=== PATIENT | male | born 1975 | race Caucasian/White ===

== ENCOUNTER 2017-11-07 07:29 | Inpatient (IN) | payer SELFPAY ==
[2017-11-07] MEDS ORDERED: Nitroglycerin 2% Ointment 1 INCH/1 GM Packet ONE (07:42)
[2017-11-07] MEDS ORDERED: Ondansetron HCl/PF 4 MG/2 ML Vial ONE (07:42)
[2017-11-07 09:35] VITALS: BMI 21.4
[2017-11-07 10:05] LABS: Troponin I Less than 0.010 ng/mL (< 0.028)
[2017-11-07] MEDS ORDERED: Communication Order-Pharmacy FS SCH (11:30)
[2017-11-07] MEDS ORDERED: Nitroglycerin 0.4 MG TAB (25 Tab Bottle) PO PRN (12:22)
[2017-11-07] MEDS ORDERED: Ondansetron HCl/PF 4 MG/2 ML Vial IVP PRN (12:22)
[2017-11-07] MEDS ORDERED: Ondansetron ODT 4 MG TAB PO PRN (12:22)
[2017-11-07] MEDS ORDERED: Acetaminophen 325 MG TAB PO PRN (12:22)
[2017-11-07] MEDS ORDERED: Senokot 8.6 MG TAB PO PRN (12:22)
[2017-11-07] MEDS ORDERED: Mag-Al 1200 mg/1200 mg/30 ML UDCUP PO PRN (12:22)
[2017-11-07] MEDS ORDERED: Calcium Carbonate 500 MG ChewTAB PO PRN (12:22)
[2017-11-07] MEDS ORDERED: Enoxaparin Sodium 60 MG/0.6 ML SYRINGE SC SCH (12:45)
[2017-11-07] MEDS ORDERED: Clopidogrel Bisulfate 75 MG TAB PO SCH (12:45)
--- NOTE | 2017-11-07 12:51 | HP ---
DATE OF ADMISSION: 11/07/2017 PRIMARY CARE PHYSICIAN: Serge Heredia. PRIMARY CONCRETE BUSTER OPERATOR: Dr. Sparks. CHIEF COMPLAINT: Chest discomfort. HISTORY OF PRESENT ILLNESS: Patient is a 42-year-old male with coronary artery disease, status post stent placement, who presented to the emergency room with above complaints. In 2013, patient underwe nt cardiac catheterization that showed 2-vessel coronary artery disease. There was a previously plac ed stent in the LAD, which was widely patent. He had 50%-75% stenosis in the right coronary artery w hich was unchanged from previous cardiac catheterization. The patient woke up around 5:30 a.m. with sudden onset of chest pressure radiating to his left arm. He was nauseous, lightheaded and diaphoretic. He also had some palpitations. No aggravating or reli eving factor reported. He continues to have some chest discomfort. His EKG in the emergency room sh owed sinus rhythm without significant ST-T wave changes. He received morphine, Zofran, and 1 inch ni tropatch was placed. His troponins were negative. PAST MEDICAL HISTORY: 1. Coronary artery disease with stent placement. 2. Dyslipidemia. 3. Hypertension. 4. Noncompliance. The patient has not taken Plavix for a month. 5. History of lung cancer with metastasis to the liver that was treated with radiation. PAST SURGICAL HISTORY: 1. Coronary stent placement. 2. Finger surgery. ALLERGIES: Patient is allergic to KEFLEX. CURRENT HOME MEDICATIONS: Aspirin 325 mg daily. He also takes antihypertensives, he is unable to re call the name. FAMILY HISTORY: Positive for premature coronary artery disease. SOCIAL HISTORY: He continues to smoke up to half pack a day. Drinks alcohol socially, no drug use. REVIEW OF SYSTEMS: The following complete review of systems was negative, unless otherwise mentioned in the HPI or below: Constitutional: Weight loss or gain, ability to conduct usual activities. Skin: Rash, itching. Eyes: Double vision, pain. ENT/Mouth: Nose bleeding, neck stiffness, pain, tenderness. Cardiovascular: Palpitations, dyspnea on exertion, orthopnea. Respiratory: Shortness of breath, wheezing, cough, hemoptysis, fever or night sweats. Gastrointestinal: Poor appetite, abdominal pain, heartburn, nausea, vomiting, constipation, or diarr hea. Genitourinary: Urgency, frequency, dysuria, nocturia. Musculoskeletal: Pain, swelling. Neurologic/Psychiatric: Anxiety, depression. Allergy/Immunologic: Skin rash, bleeding tendency. PHYSICAL EXAMINATION: VITAL SIGNS: Temperature 98.4, respiration 18, pulse rate of 85, blood pressure of 145/94 with O2 sa turation 98% on room air. GENERAL: A 42-year-old male in no apparent distress. Still has mild to moderate chest discomfort. HEENT: Atraumatic, normocephalic. Sclerae are anicteric. Moist mucous membranes. No oral lesion. NECK: Supple, no JVD, no carotid bruit. LUNGS: Clear to auscultation bilaterally, no wheezing, rales or rhonchi. HEART: S1 and S2 present. Regular rate and rhythm. No murmurs, rubs, or gallops. ABDOMEN: Soft, nontender, bowel sounds present. EXTREMITIES: No edema or calf tenderness. NEUROLOGIC: Grossly nonfocal, moves all four extremities. PSYCHIATRIC: Alert, awake, oriented x3. SKIN: Warm and dry. LYMPH NODES: No palpable lymph nodes in the neck. PERIPHERAL VASCULAR: Radial pulses palpable bilaterally. MUSCULOSKELETAL: No joint swelling or tenderness. LABORATORY DATA AND IMAGING DATA: CBC showed WBC 8.1 with hemoglobin 15.8, hematocrit 45.8, platelet 219. Chemistries showed sodium 141, potassium 4.2, chloride 105, bicarbonate 23, BUN 13, creatinine 0.75, glucose 110. Troponins were negative. Chest x-ray by my review was negative for infiltrate. EKG by my review as discussed above. IMPRESSION AND PLAN: 1. Chest discomfort in a 42-year-old male with history of coronary artery disease with stent placeme nt. The patient continues to smoke. He has not taken Plavix for a month. His symptoms are highly s uspicious for acute coronary syndrome. Patient will be monitored in the telemetry unit. Cardiology will be consulted. We will continue aspirin. We will resume Plavix. We will also give him 1 dose o f Lovenox. 2. Tobacco dependence. Patient was extensively counseled to quit smoking. 3. Hypertension. We will monitor. We will continue nitropatch for now. If needed, we will add SHELDON inhibitor. 4. Dyslipidemia. We will start him on statins. 5. History of lung cancer with metastasis to the liver, treated with radiation. The patient was adv ised to quit smoking. Plan of care was discussed with the patient in detail. He stated understanding.
[2017-11-07] MEDS: Nitroglycerin 2% Ointment 1 INCH/1 GM Packet TOP SCH ×2 (13:17→20:41)
[2017-11-07] MEDS: HYDROcodone/Acetaminophen 5/325 mg Tablet PO PRN ×2 (13:19→19:09)
[2017-11-07 14:06] LABS: Troponin I Less than 0.010 ng/mL (< 0.028)
[2017-11-07] MEDS: Famotidine 20 MG TAB PO SCH (20:40)
[2017-11-07] MEDS: Atorvastatin Calcium 40 MG TAB PO SCH (20:40)
[2017-11-07] MEDS: Docusate 100 MG CAP PO SCH (20:41)
[2017-11-07] MEDS: Sodium Chloride 0.9% 1,000 ML IV SCH (23:43)
[2017-11-08] MEDS: Aspirin 325 MG TAB PO SCH (05:00)
[2017-11-08] MEDS: Famotidine 20 MG TAB PO SCH ×2 (05:00→20:43)
[2017-11-08] MEDS: Clopidogrel Bisulfate 75 MG TAB PO SCH (05:00)
[2017-11-08] MEDS: Nitroglycerin 2% Ointment 1 INCH/1 GM Packet TOP SCH ×3 (05:00→20:43)
[2017-11-08] MEDS ORDERED: Lidocaine 1% (PF) 30 ML VIAL ONE (07:42)
[2017-11-08] MEDS ORDERED: Iopamidol 370 76% 100 ML VIAL ONE (09:06)
--- NOTE | 2017-11-08 09:30 | CON ---
DATE OF CONSULTATION: 11/07/2017 ADMITTING DIAGNOSES: Chest pain, history of coronary artery disease, continued tobacco abuse, hypert ension, and dyslipidemia. HISTORY OF PRESENT ILLNESS: This very unfortunate 42-year-old gentleman was originally seen by me ab out 5 years ago, at which time he had had a myocardial infarction. He underwent an emergent angiopla sty and stent placement to the left anterior descending artery. At that time, he was found to have s ome right coronary artery stenosis, has been followed on a routine basis. He had had a repeat cardia c catheterization in 2013. His last was in 2013 where he underwent a Doppler flow wire, which did no t show significant physiological stenosis in the right coronary artery. He had undergone a repeat an gioplasty, also previously about a month after he was originally seen in 03/2013 for his original jaison cardial infarction. He then underwent a repeat cardiac catheterization in 04/2013 for in-stent reste nosis after he had stopped taking his medications. We have been following him by cardiac catheteriza tion. He does not report to the office. He has never been seen in the office. He is only seen in [facility] when he develops chest pain. He again woke up this morning around 6:00 having chest pain and he also had some left hand swelling he said. He said the pain was pressure-like, like when he h as suffered his myocardial infarction in the past; however, EKG is unremarkable. It shows a normal s inus rhythm and cardiac enzymes also negative for any evidence of myocardial infarction. At this george e, he still has some mild discomfort, but EKG remained stable. PAST MEDICAL HISTORY: Significant for coronary artery disease, angioplasty, stent placement, hyperte nsion, hypercholesterolemia. He has had angioplasty and stent placement to myocardial infarction. There is some indication in the notes that he may have some lung cancer with metastasis to the liver. I need to verify this. SOCIAL HISTORY: He does smoke. 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 He has 7 children who he helps take care of . MEDICATIONS: The patient was supposed to be taking Zocor, lisinopril, aspirin as well as Plavix. I do not believe he has been taking any of his medications. ALLERGIES: None. REVIEW OF SYSTEMS: A 12 point review of systems is unremarkable except what was noted in the history of present illness. PHYSICAL EXAMINATION: GENERAL: Reveals a middle-aged gentleman who appears to be somewhat ill-kept. He is thin. He is in no acute distress at this time. VITAL SIGNS: Blood pressure of 130/84. He is afebrile. O2 saturation 98%, heart rate is 79. HEENT: Shows the head to be normocephalic and atraumatic. Carotid pulses are present. There were n o bruits. CHEST: Clear to auscultation without rales, rhonchi or wheezing. CARDIOVASCULAR: Exam reveals a regular rate and rhythm, normal S1, S2. I cannot hear an S3 nor an S 4. ABDOMEN: Unremarkable. EXTREMITIES: Show no clubbing, cyanosis or edema. NEUROLOGIC: The patient appears to be intact. SKIN: Warm and dry. There appears not be any swelling of the hands at this time. LABORATORY DATA: Shows negative cardiac enzymes and his glucose is 110, BUN was 13, creatinine 0.7, hemoglobin is 15.8. EKG shows a normal sinus rhythm with no acute changes. LDL was not measured. IMPRESSION: 1. Coronary artery disease with chest pain and I would advise the patient undergo repeat cardiac cat heterization despite having a relatively normal EKG and negative cardiac enzymes thus far. . 2. Hypertension. This is under good control at this time. 3. Hypercholesterolemia. Would advise with his history of coronary artery disease that the LDL be l ess than 70. We can repeat this level in the morning with a fasting lipid profile. Otherwise, we will plan for cardiac catheterization in this gentleman tomorrow. He does understand t he procedure and risks to include bleeding, infection, possibly a myocardial infarction, CVA, renal i nsufficiency, allergic contrast reaction, and the possibility of . We will plan for cardiac cat heterization tomorrow.
[2017-11-08] MEDS ORDERED: Heparin 10,000 UNITS/1 ML VIAL ONE (09:38)
[2017-11-08] MEDS ORDERED: Nitroglycerin 100MG/250ML BOT 250 ML ONE (09:38)
[2017-11-08] MEDS ORDERED: Verapamil 5 MG/2 ML VIAL ONE (09:38)
[2017-11-08] MEDS ORDERED: Clopidogrel Bisulfate 75 MG TAB ONE (10:20)
[2017-11-08] MEDS ORDERED: Midazolam HCl 2 mg/2 ml Vial ONE (10:32)
[2017-11-08] MEDS ORDERED: Fentanyl 100 MCG/2 ML VIAL ONE (10:42)
[2017-11-08] MEDS ORDERED: Carvedilol 3.125 MG TAB PO SCH ×3 (11:10→21:00)
[2017-11-08] MEDS: Sodium Chloride 0.9% 1,000 ML IV SCH (11:30)
[2017-11-08] MEDS: HYDROcodone/Acetaminophen 5/325 mg Tablet PO PRN ×2 (11:35→17:57)
[2017-11-08] MEDS: Docusate 100 MG CAP PO SCH ×2 (13:43→20:43)
--- NOTE | 2017-11-08 14:26 | PDOC.PN ---
- Subjective Encounter Start Date: 11/08/17 Encounter Start Time: 14:24 Subjective: s/p cardiac Cath and RCA stenting -: feels well. no new complaints -: no CP/SOB - Objective Resuscitation Status: Resuscitation Status FULL:Full Resuscitation MAR Reviewed: Yes Vital Signs & Weight: Vital Signs (12 hours) Temp Pulse Resp BP BP Pulse Ox 11/08/17 11:58 97.5 F L 73 20 134/83 98 11/08/17 11:05 77 14 163/92 H 98 11/08/17 10:42 98 11/08/17 07:38 97.7 F 75 24 H 139/93 H 100 11/08/17 05:00 98.3 F 68 16 129/85 98 Weight Weight 142 lb 14.4 oz I&O: 11/07/17 11/08/17 11/09/17 06:59 06:59 06:59 Intake Total 1440 566 Balance 1440 566 Additional Labs: Laboratory Tests 11/07/17 11/07/17 11/07/17 06:16 09:25 13:33 Troponin I Less than 0.010 Less than 0.010 Less than 0.010 Phys Exam - Physical Examination Constitutional: NAD HEENT: PERRLA, moist MMs, sclera anicteric, oral pharynx no lesions Neck: no nodes, no JVD, supple, full ROM Respiratory: no wheezing, no rales, no rhonchi, clear to auscultation bilateral Cardiovascular: RRR, no significant murmur, no rub Gastrointestinal: soft, non-tender, no distention, positive bowel sounds Musculoskeletal: no edema, pulses present Neurological: non-focal, normal sensation, moves all 4 limbs Psychiatric: normal affect, A&O x 3 Skin: no rash Dx/Plan (1) Chest pain Code(s): R07.9 - CHEST PAIN, UNSPECIFIED Status: Acute Qualifiers: Ischemic chest pain type: stable angina pectoris (2) CAD (coronary artery disease) Code(s): I25.10 - ATHSCL HEART DISEASE OF [place] CORONARY ARTERY W/O ANG PCTRS Status: Chronic (3) HLD (hyperlipidemia) Code(s): E78.5 - HYPERLIPIDEMIA, UNSPECIFIED Status: Chronic (4) HTN (hypertension) Code(s): I10 - ESSENTIAL (PRIMARY) HYPERTENSION Status: Chronic (5) Tobacco abuse Code(s): Z72.0 - TOBACCO USE Status: Chronic (6) Noncompliance Code(s): Z91.19 - PATIENT'S NONCOMPLIANCE W OTH MEDICAL TREATMENT AND REGIMEN Status: Chronic - Plan DVT proph w/SCDs Hemodynamically stab;le. monitor on Tele post Cath -: cont ASA,statin,palvix,BB and SHELDON-I -: dorothea dc home in am if stable & cleared by cardiology -: Tobacco cessation & med complinace discussed/emphasized in detail * . Review of Systems - Review of Systems Constitutional: negative: fever, chills, sweats, weakness, malaise, other ENT: negative: Ear Pain, Ear Discharge, Nose Pain, Nose Discharge, Nose Congestion, Mouth Pain, Mouth Swelling, Throat Pain, Throat Swelling, Other Respiratory: negative: Cough, Dry, Shortness of Breath, Hemoptysis, SOB with Excertion, Pleuritic Pain, Sputum, Wheezing Cardiovascular: negative: chest pain, palpitations, orthopnea, paroxysmal nocturnal dyspnea, edema, light headedness, other Gastrointestinal: negative: Nausea, Vomiting, Abdominal Pain, Diarrhea, Constipation, Melena, Hematochezia, Other Genitourinary: negative: Dysuria, Frequency, Incontinence, Hematuria, Retention , Other Musculoskeletal: negative: Neck Pain, Shoulder Pain, Arm Pain, Back Pain, Hand Pain, Leg Pain, Foot Pain, Other Neurological: negative: Weakness, Numbness, Incoordination, Change in Speech, Confusion, Seizures, Other - Medications/Allergies Allergies/Adverse Reactions: Allergies Allergy/AdvReac Type Severity Reaction Status Date / Time No Known Allergies Allergy Verified 11/07/17 09:49 Medications: Current Medications Acetaminophen (Tylenol) 650 mg PO Q4H PRN PRN Reason: Headache/Fever or Pain Hydrocodone Bitart/Acetaminophen (Sartell 5/325) 1 tab PO Q6H PRN PRN Reason: Pain Last Admin: 11/08/17 11:35 Dose: 1 tab Al Hydroxide/Mg Hydroxide (Maalox) 30 ml PO Q6H PRN PRN Reason: Heartburn or Indigestion Aspirin (Aspirin) 325 mg PO DAILY [facility] Last Admin: 11/08/17 05:00 Dose: 325 mg Atorvastatin Calcium (Lipitor) 40 mg PO HS DANICA Last Admin: 11/07/17 20:40 Dose: 40 mg Calcium Carbonate (Tums) 1,000 mg PO Q4H PRN PRN Reason: Heartburn or Indigestion Carvedilol (Coreg) 3.125 mg PO BID-[facility] Clopidogrel Bisulfate (Plavix) 75 mg PO DAILY [facility] Last Admin: 11/08/17 05:00 Dose: 75 mg Docusate Sodium (Colace) 100 mg PO BID [facility] Last Admin: 11/08/17 13:43 Dose: Not Given Famotidine (Pepcid) 20 mg PO BID [facility] Last Admin: 11/08/17 05:00 Dose: 20 mg Sodium Chloride (Normal Saline 0.9%) 1,000 mls @ 75 mls/hr IV .[id number] [facility] Last Admin: 11/08/17 11:30 Dose: 1,000 mls Lisinopril (Zestril) 2.5 mg PO DAILY [facility] Miscellaneous Information (Communication Order-Pharmacy) 0 each FS ONE [facility] Stop: 11/08/17 17:00 Nitroglycerin (Nitrostat) 0.4 mg PO Q5MIN PRN PRN Reason: Chest Pain Nitroglycerin (Nitro-Bid 2% Ointment) 0.5 inch TOP Q8H [facility] Last Admin: 11/08/17 14:08 Dose: 0.5 inch Ondansetron HCl (Zofran Odt) 4 mg PO Q6H PRN PRN Reason: Nausea/Vomiting Ondansetron HCl (Zofran) 4 mg IVP Q6H PRN PRN Reason: Nausea/Vomiting Senna (Senokot) 2 tab PO HSPRN PRN PRN Reason: Constipation Sodium Chloride (Flush - Normal Saline) 10 ml IVF Q12HR [facility] Last Admin: 11/08/17 11:21 Dose: Not Given Sodium Chloride (Flush - Normal Saline) 10 ml IVF PRN PRN PRN Reason: Saline Flush
[2017-11-08] MEDS: Carvedilol 3.125 MG TAB PO SCH (17:51)
[2017-11-08] MEDS: Atorvastatin Calcium 40 MG TAB PO SCH (20:42)
[2017-11-09] MEDS: HYDROcodone/Acetaminophen 5/325 mg Tablet PO PRN (00:52)
[2017-11-09] MEDS: Nitroglycerin 2% Ointment 1 INCH/1 GM Packet TOP SCH (04:43)
[2017-11-09 05:18] LABS: #Basophils 0.1 thou/uL (0.0-0.2); #Eosinphils 0.4 thou/uL (0.0-0.7); #Lymphocytes 2.7 thou/uL (1.20-3.40); #Monocytes 0.8 thou/uL (0.11-0.59); %Basophils 0.8 % (0.0-1.0); %Eosinophils 4.5 % (0.0-10.0); %Lymphocytes 34.2 % (21.0-51.0); %Monocytes 9.7 % (0.0-10.0); %Neutrophils 50.8 % (42.0-75.0); Hemoglobin 14.7 g/dL (14.0-18.0); Mean Corpuscular HGB CONC 33.9 g/dL (32.0-36.0); Mean Corpuscular Hemoglobin 31.9 pg (27.0-31.0); Mean Corpuscular Volume 94.1 fL (78.0-98.0); Mean Platelet Volume 7.9 fL (7.4-10.4); Platelet Count 195 thou/uL (130-400); RBC Distribution Width 11.1 % (11.5-14.5); Red Blood Cell (RBC) Count 4.61 mill/uL (4.70-6.10); White Blood Cell (WBC) Count 7.9 thou/uL (4.8-10.8)
[2017-11-09 05:32] LABS: ALT (SGPT) 8 U/L (8-55); AST (SGOT) 14 U/L (5-34); Albumin 3.9 g/dL (3.5-5.0); Alkaline Phosphatase 69 U/L (40-150); Anion Gap 10 mmol/L (10-20); BUN (Urea Nitrogen) 7 mg/dL (8.9-20.6); Bilirubin, Total 0.5 mg/dL (0.2-1.2); Calc. Creatinine Clearance 119 mL/min (70-130); Carbon Dioxide 26 mmol/L (22-29); Chloride 107 mmol/L (98-107); Estimated GFR-MDRD Greater than 90; Globulin 2.7 g/dL (2.4-3.5); Glucose 99 mg/dL (70-105); Potassium 4.3 mmol/L (3.5-5.1); Protein, Total 6.6 g/dL (6.0-8.3); Sodium 139 mmol/L (136-145)
[2017-11-09] MEDS: Clopidogrel Bisulfate 75 MG TAB PO SCH (08:30)
[2017-11-09] MEDS: Famotidine 20 MG TAB PO SCH (08:31)
[2017-11-09] MEDS: Carvedilol 3.125 MG TAB PO SCH (08:31)
[2017-11-09] MEDS: Docusate 100 MG CAP PO SCH (08:31)
[2017-11-09] MEDS: Aspirin 325 MG TAB PO SCH (08:31)
[2017-11-09 08:52] VITALS: BP 132/84; TEMP 98
[2017-11-09] MEDS ORDERED: Lisinopril 2.5 MG TAB PO SCH (09:00)
--- NOTE | 2017-11-09 14:27 | DIS ---
DATE OF ADMISSION: 11/07/2017 DATE OF DISCHARGE: 11/09/2017 CONDITION AT THE TIME OF DISCHARGE: Stable and improved. DISCHARGE DISPOSITION: Home. DISCHARGE MEDICATIONS: Lisinopril 2.5 mg daily, Plavix 75 mg daily, aspirin 325 mg daily, atorvastat in 40 mg daily, carvedilol 3.125 mg p.o. b.i.d., nicotine patch 14 mg daily. DISCHARGE DIAGNOSES: 1. Stable angina pectoris. 2. Chest pain secondary to stable angina pectoris. 3. Dyslipidemia. 4. Hypertension. 5. Noncompliance. 6. Tobacco abuse. INHOUSE CONSULTATIONS: Cardiology, Coral Sparks M.D. PROCEDURES DONE IN THE HOSPITAL: Cardiac catheterization, which showed 2-vessel coronary artery dise ase, prior stent in the LAD without stenosis. RCA with serial 90% lesion status post stenting with d rug-eluting stent. EF 55%-60%. HISTORY OF PRESENT ILLNESS: Mr. Duc Laughlin is a 42-year-old male with known history of coronary ar kirsten disease who continues to smoke, but prefers not to take his medication, came to the emergency ro with chest discomfort. He has stopped taking his Plavix about 1 month ago. Upon presentation, EK G showed sinus rhythm without any significant ST-T wave changes. Cardiac enzymes were negative. He was admitted for further workup. Blood pressure was 145/94 upon admission. Cardiology was consulted . Please see admission history and physical for further details. HOSPITAL COURSE: The patient was seen by Dr. Sparks, who recommended a cardiac catheterization. Seria l cardiac enzymes were trended and were negative. His cardiac catheterization shows severe RCA steno sis, which was stented. He was restarted on all the cardiac prudent medications and was stabilized a nd cleared by Cardiology for discharge this morning. All the medication prescriptions were provided to the patient. He was seen and examined prior to discharge. Extensive tobacco cessation counseling was provided. Rui borges was started on nicotine patches and was given prescription. PHYSICAL EXAMINATION: VITAL SIGNS: This morning, temperature 98.0, heart rate 67, respirations 20, saturating 100% on room air, blood pressure 132/84. GENERAL: He was not in the room initially and has gone down to smoke, but I saw him when he came [facility]. CHEST: Clear to auscultation bilaterally. CARDIOVASCULAR: Rate and rhythm are regular. He is given referral to [facility] and instructed to follow up with Dr. Sparks and armando smith his medications as prescribed. Total time spent, 32 minutes.
--- NOTE | 2017-11-11 12:23 | EKG ---
Test Reason : CP Blood Pressure : / mmHG Vent. Rate : 087 BPM Atrial Rate : 087 BPM P-R Int : 144 ms QRS Dur : 100 ms QT Int : 354 ms P-R-T Axes : 073 087 064 degrees QTc Int : 425 ms Normal sinus rhythm Normal ECG Confirmed by ADDIS VALENZUELA ([id number]), copy editor NANCI CHU ([id number]) on 11/11/2017 12:23:17 PM Referred By: Confirmed By:ADDIS VALENZUELA
--- NOTE | 2017-11-12 17:18 | EKG ---
Test Reason : POST STENTS Blood Pressure : / mmHG Vent. Rate : 059 BPM Atrial Rate : 059 BPM P-R Int : 132 ms QRS Dur : 106 ms QT Int : 404 ms P-R-T Axes : 050 089 061 degrees QTc Int : 399 ms Sinus bradycardia Otherwise normal ECG When compared with ECG of 26-NOV-2015 22:07, No significant change was found Confirmed by MARNIE PARRISH (2) on 11/12/2017 5:18:06 PM Referred By: YENNI Confirmed By:MARNIE PARRISH
--- NOTE | 2017-11-12 17:35 | EKG ---
Test Reason : Blood Pressure : / mmHG Vent. Rate : 058 BPM Atrial Rate : 058 BPM P-R Int : 148 ms QRS Dur : 100 ms QT Int : 404 ms P-R-T Axes : 073 090 071 degrees QTc Int : 396 ms Sinus bradycardia Rightward axis Borderline ECG When compared with ECG of 08-NOV-2017 11:44, (Unconfirmed) No significant change was found Confirmed by MARNIE PARRISH (2) on 11/12/2017 5:34:48 PM Referred By: YENNI Confirmed By:MARNIE PARRISH
== END 2017-11-09 11:09 | disposition home or self-care (01) | DRG 247 ==
LOC: ERS 07:29 → 2SW 09:16 → OBSVTOIN 11-08 11:10
PROVIDERS: ADMIT Internal Medicine; ATTEND Internal Medicine
PROC: 027034Z Dilation of Coronary Artery, One Artery with Drug-eluting Intraluminal Device, Percutaneous Approach (ICD-10-PCS; principal; 2017-11-08)
PROC: 4A023N7 Measurement of Cardiac Sampling and Pressure, Left Heart, Percutaneous Approach (ICD-10-PCS; 2017-11-08)
PROC: B2111ZZ Fluoroscopy of Multiple Coronary Arteries using Low Osmolar Contrast (ICD-10-PCS; 2017-11-08)
PROC: B2151ZZ Fluoroscopy of Left Heart using Low Osmolar Contrast (ICD-10-PCS; 2017-11-08)
DX: I25.119 Atherosclerotic heart disease of native coronary artery with unspecified angina pectoris (principal); E78.5 Hyperlipidemia, unspecified; I10 Essential (primary) hypertension; F17.210 Nicotine dependence, cigarettes, uncomplicated; Z91.19 Patient's noncompliance with other medical treatment and regimen; I25.2 Old myocardial infarction; Z85.118 Personal history of other malignant neoplasm of bronchus and lung; Z85.05 Personal history of malignant neoplasm of liver; Z95.5 Presence of coronary angioplasty implant and graft
CPT/HCPCS: 36415; 80053; 85025; 85347; 92928; 93005; 93010; 93458; 93798; 94760; 96374; 96375; 99152; 99153; A4216; C1769; C1874; C1887; C9600; J1644; J1650; J2001; J2250; J2270; J2405; J3010

== ENCOUNTER 2017-11-13 22:42 | Inpatient (IN) | payer SELFPAY ==
[2017-11-14 00:34] LABS: CKMB 1.4 ng/mL (0-6.6); Troponin I 0.047 ng/mL (< 0.028)
[2017-11-14 02:11] VITALS: BMI 21.2
[2017-11-14] MEDS ORDERED: Acetaminophen 325 MG TAB PO PRN ×2 (02:23→09:04)
[2017-11-14] MEDS ORDERED: Ondansetron ODT 4 MG TAB SL PRN (02:23)
[2017-11-14] MEDS ORDERED: Ondansetron HCl/PF 4 MG/2 ML Vial IVP PRN ×2 (02:23→09:04)
[2017-11-14 06:14] LABS: Troponin I 0.111 ng/mL (< 0.028)
[2017-11-14] MEDS ORDERED: Enoxaparin Sodium 80 MG/0.8 ML SYRINGE SC SCH (09:00)
[2017-11-14] MEDS ORDERED: Nitroglycerin 0.4 MG TAB (25 Tab Bottle) PO PRN (09:04)
[2017-11-14] MEDS ORDERED: Ondansetron ODT 4 MG TAB PO PRN (09:04)
[2017-11-14] MEDS ORDERED: Mag-Al 1200 mg/1200 mg/30 ML UDCUP PO PRN (09:04)
[2017-11-14] MEDS ORDERED: Senokot 8.6 MG TAB PO PRN (09:04)
[2017-11-14] MEDS ORDERED: Calcium Carbonate 500 MG ChewTAB PO PRN (09:04)
[2017-11-14] MEDS ORDERED: Sodium Chloride 0.9% 1,000 ML IV SCH (09:15)
[2017-11-14] MEDS ORDERED: Carvedilol 3.125 MG TAB PO SCH ×2 (09:15→17:00)
[2017-11-14] MEDS ORDERED: Lisinopril 2.5 MG TAB PO SCH (09:15)
--- NOTE | 2017-11-14 09:31 | HP ---
DATE OF ADMISSION: 11/14/2017 PRIMARY CARE PHYSICIAN: Serge Heredia. PRIMARY ORE MIXER: Dr. Sparks. CHIEF COMPLAINT: Chest discomfort. HISTORY OF PRESENT ILLNESS: Patient is a 42-year-old male with coronary artery disease, status post RCA stent last week, hypertension, and dyslipidemia, who presented to the emergency room with chest d iscomfort. He was discharged from this facility 5 days ago after RCA stent. He was also started on Lipitor 40 mg daily. Over the last 2-3 days, the patient has bilateral calf cramping. 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 His cramping and his bilateral calf also got worse. His pain was substernal, 5/10 with some shortness of breath. He denies any aggravating or relieving factor. No nausea, vomiting, fever , chills, or syncope reported. He denies any palpitations. For this reason[facility] In the emergency room, his vital signs showed temperature 98.4, respirations 15, pulse rate of 90, bl ood pressure of 124/73 with O2 saturation 95% on room air. His EKG showed some nonspecific ST-T-wave changes per ER report. He was started on Lovenox, aspirin, and a nitro patch was placed. He was tr ansferred to this facility for hospital admission. PAST MEDICAL HISTORY: 1. Coronary artery disease, status post stent placement as discussed above. 2. Hypertension. 3. Dyslipidemia. 4. History of medication noncompliance. The patient is compliant with all of his medications since his last discharge. 5. History of lung cancer with metastasis to the liver that was treated with radiation. PAST SURGICAL HISTORY: 1. Coronary stent placement as discussed above. 2. Finger surgery. ALLERGIES: Patient is allergic to KEFLEX. CURRENT HOME MEDICATIONS: 1. Aspirin 325 mg daily. 2. Plavix 75 mg daily. 3. Lipitor 40 mg at bedtime. 4. Carvedilol 3.125 mg b.i.d. 5. Lisinopril 2.5 mg daily. SOCIAL HISTORY: Patient quit smoking after the cardiac catheterization last week. He drinks alcohol socially, no drug use. FAMILY HISTORY: Positive for premature coronary artery disease. REVIEW OF SYSTEMS: The following complete review of systems was negative, unless otherwise mentioned in the HPI or below: Constitutional: Weight loss or gain, ability to conduct usual activities. Sk in: Rash, itching. Eyes: Double vision, pain. ENT/Mouth: Nose bleeding, neck stiffness, pain, te nderness. Cardiovascular: Palpitations, dyspnea on exertion, orthopnea. Respiratory: Shortness of breath, wheezing, cough, hemoptysis, fever, or night sweats. Gastrointestinal: Poor appetite, abdo jabier pain, heartburn, nausea, vomiting, constipation, or diarrhea. Genitourinary: Urgency, frequen cy, dysuria, nocturia. Musculoskeletal: Pain, swelling. Neurologic/Psychiatric: Anxiety, depressi on. Allergy/Immunologic: Skin rash, bleeding tendency. PHYSICAL EXAMINATION: VITAL SIGNS: As discussed above. GENERAL: A 42-year-old male in no apparent distress. Chest discomfort has improved. HEENT: Atraumatic, normocephalic. Sclerae are anicteric. Moist mucous membrane, no oral lesion. NECK: Supple, no JVD, no carotid bruit. LUNGS: Clear to auscultation bilaterally. No wheezing, rales, or rhonchi. HEART: S1 and S2 present. Regular rate and rhythm. No murmur, rubs, or gallops appreciated. ABDOMEN: Soft, nontender, bowel sounds present. EXTREMITIES: No edema or calf tenderness. NEUROLOGIC: Grossly nonfocal, moves all 4 extremities. PSYCHIATRY: Alert, awake, oriented x3. SKIN: Warm and dry. LYMPH NODES: No palpable lymph nodes in the neck. PERIPHERAL VASCULAR: Radial pulses palpable bilaterally. MUSCULOSKELETAL: No joint swelling or tenderness. LABORATORY FINDINGS: CBC showed WBC 11.5 with hemoglobin 15.8, hematocrit 44.9, platelet count of 27 0. D-dimer was 0.30. Chemistries showed sodium 136, potassium 4.2, chloride 100, bicarbonate 25, BU N 10, creatinine 0.9. Troponin was 0.111. BNP was negative. LFTs in normal range. Chest x-ray, by my review, was negative for infiltrate or edema. EKG, by my review, showed sinus rhythm with nonspecific ST-T-wave changes. IMPRESSION AND PLAN: 1. Chest discomfort with elevated troponins in the indeterminate range. He also had cardiac cathete rization last week with RCA stent placement. Questionable unstable angina. The patient will be chencho tored on the telemetry unit. Cardiology has already been consulted. He is already on Lovenox 1 mg p er kilogram twice a day. Patient is currently n.p.o. We will start him on gentle IV hydration. 2. Bilateral muscle cramping, especially in the calf, over the last 2-3 days. Possibilities include dehydration versus statin-induced statin myopathy. We will hold statins for now. Continue IV hydra tion. 3. Coronary artery disease, status post recent RCA stent placement. We will continue aspirin, Plavi x, carvedilol, and low-dose lisinopril. 4. Former smoker. 5. Dyslipidemia. Plan as discussed above. 6. Elevated troponins in the indeterminate range, probably secondary to demand ischemia versus unsta ble angina. Plan of care was discussed with the patient in detail. He stated understanding.
[2017-11-14 09:48] LABS: Troponin I 0.131 ng/mL (< 0.028)
[2017-11-14] MEDS: Nitroglycerin 2% Ointment 1 INCH/1 GM Packet TOP SCH ×2 (10:04→16:59)
--- NOTE | 2017-11-14 11:25 | CON ---
DATE OF CONSULTATION: 11/14/2017 DATE OF ADMISSION: 11/14/2017 INDICATION FOR CONSULTATION: A 42-year-old patient with history of known coronary artery disease who recently underwent angioplasty and stent placement. I believe on 11/08/2017 admitted with a stent p lacement to the right coronary artery. He had a previously stent placement in the past to the left a nterior descending artery. He has had a myocardial infarction also in the past with association of t he left anterior descending artery which I believe was back in 2013. He had a repeat cardiac cathete rization in 2013 and it was felt to be relatively stable. At that time, I believe he had stopped yung ing his medications. He did quite well after his last angioplasty and stent placement to the right c oronary artery. He did have some areas that were still narrowed, but we were not felt to be signific antly stenosis enough to undergo further stent placement. He was discharged from the hospital about a week ago. 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 He then started noticing some sharp chest pains and also became somewhat diaphoretic. He has had muscle aches in his calf areas and then he decided to go home. He went home, laid down and he started noti cing some sharp chest pains. It is worse lying down flat. We he turned to side, they would ease a l ittle bit. The pain lasted until this morning and he presented to the emergency room where cardiac e nzymes are slightly elevated, but was still be considered indeterminate. His troponin I, the first s et was 0.0349, now increased up to 0.131. He describes this discomfort at this time different than w hat his last pain was. He says is not pressure, but was sharp pains. His EKG does not show any acut e changes. He has some nonspecific ST segment changes, but nothing acute, and he believes that he be came over heated and somewhat dehydrated after his first day back at work. At this time, he is pain free. We will continue to follow him. We will continue to monitor the cardiac enzymes. If they bec ome more significant or if he develop further pain, he may need to undergo repeat cardiac catheteriza tion. PAST MEDICAL HISTORY: Significant for coronary artery disease, angioplasty with stent placement, hyp ertension, hypercholesterolemia, tobacco abuse. He had a myocardial infarction in the past, underwen t angioplasty and stent placement to left anterior descending artery. Also note that in the last [facility] catheterization, this was reviewed and the left anterior descending artery was widely patent. Rui borges also has some history in the past of lung cancer with metastasis to the liver, but this apparently has been stable. He did have radiation therapy and says it will resolve. SOCIAL HISTORY: He smoked in the past. He just stopped smoking on his last admission. 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 He has 7 children. MEDICATIONS: He was taking Lipitor on discharge from the hospital as well as Plavix and most likely his leg pains are due to the Plavix. He was taking Plavix 75 mg a day, lisinopril 2.5 mg a day, Core g 3.125 mg b.i.d. and 81 mg of aspirin. We will increase the aspirin up to 325 mg since he is just t aking Plavix and not Brilinta. ALLERGIES: None. REVIEW OF SYSTEMS: Twelve point review of systems unremarkable except what was noted in the history of present illness. PHYSICAL EXAMINATION: GENERAL: Reveals a very pleasant, well-developed, well-nourished gentleman, somewhat small size. VITAL SIGNS: Blood pressure 100/67, heart rate is 71 and regular. He is afebrile, respiratory rate is about 16. HEENT: Shows head to be normocephalic and atraumatic. Carotid pulses are present. There were no br uits. There is no JVD. The thyroid is enlarged and mucosa is pink and moist. CHEST: Clear to auscultation without rales, rhonchi or wheezing. CARDIOVASCULAR: Exam reveals a regular rate and rhythm with normal S1, S2. There is no S3, S4. The re were no significant murmurs, heaves, thrills, bruits or rubs. ABDOMEN: Soft, flat, nontender. Positive bowel sounds are present. EXTREMITIES: Showed no clubbing, cyanosis or edema. The calf muscles are tender to the touch. Peda l pulses are present. Radial pulses are present. NEUROLOGIC: The patient appears to be fully intact. LABORATORY AND IMAGING: His EKG shows normal sinus rhythm with some nonspecific changes, but no acut e changes were noted, no indication of myocardial infarction at this time or ischemia. Cardiac enzym es are as noted above are slightly abnormal. His other laboratory data is within normal limits. His hemoglobin is also stable. Potassium is 4.2, blood sugar was 99. IMPRESSION: 1. A 42-year-old gentleman with history of coronary artery disease, who has undergone an anterior my ocardial infarction several years ago, then underwent angioplasty and stent placement in the left ant erior descending artery on the catheterization a week ago. This remains patent. There is no evidenc e of in-stent restenosis. He also underwent angioplasty and stent placement to the right coronary on his last admission here week ago. This does appear to be stable. If he continues to have any other chest discomfort or enzymes continue to increase, he may need to undergo repeat cardiac catheterizat ion to ensure that the vessel remains patent and there is no evidence of in-stent restenosis. He has been taking his medicines and has been compliant. 2. History of tobacco abuse. He said he stopped smoking after his last hospitalization. 3. History of hypercholesterolemia. He has been placed on Lipitor but has developed muscle aches or myalgias and this will need to be discontinued due to significant pain he suffered in his calf and w e will try some other medication. 4. Hypertension. This is under good control at this time. We will continue to follow the patient. I will recheck his enzymes and if they continue to elevate more than one would expect, then we will need to repeat his cardiac catheterization, but at this time, he is pain free and stable and he himse lf believes that he became overheated and too stressed at work.
[2017-11-14 12:44] LABS: Troponin I 0.139 ng/mL (< 0.028)
[2017-11-14 16:02] VITALS: BP 114/69; TEMP 98.2
--- NOTE | 2017-11-14 17:38 | DIS ---
DATE OF DISCHARGE: 11/14/2017 DISCHARGE DISPOSITION: Home. FOLLOWUP: 1. Follow up with primary care physician at [facility] in 1 week. 2. Follow up with Dr. Sparks in 2 weeks. BRIEF HOSPITAL COURSE: The patient is a 42-year-old male, who was admitted earlier today with chest discomfort. Please refer to the history and physical for further details. The patient was admitted to the hospital with a diagnosis of suspected unstable angina. He was found to have indeterminate troponins. He was evaluated by Cardiology. Cardiology recommended to continu e his aspirin and Plavix. Due to possible statin myopathy, statins were held. Per Cardiology, sympt oms were probably secondary to dehydration. His symptoms have considerably improved with IV hydratio n. He will be discharged home later today if he has been cleared by Cardiology. FINAL DIAGNOSES: 1. Chest discomfort with elevated troponins in the indeterminate range. 2. Statin myopathy. 3. Coronary artery disease, status post recent RCA stent, on aspirin, Plavix. 4. Former smoker. 5. Dyslipidemia. Plan of care was discussed with the patient in detail. He stated understanding.
[2017-11-14] MEDS ORDERED: Famotidine 20 MG TAB PO SCH (21:00)
[2017-11-15] MEDS ORDERED: Aspirin 325 MG TAB PO SCH (09:00)
[2017-11-15] MEDS ORDERED: Clopidogrel Bisulfate 75 MG TAB PO SCH (09:00)
[2017-11-15] MEDS ORDERED: Lisinopril 2.5 MG TAB PO SCH (09:00)
--- NOTE | 2017-11-18 15:52 | EKG ---
Test Reason : CP Blood Pressure : / mmHG Vent. Rate : 061 BPM Atrial Rate : 061 BPM P-R Int : 150 ms QRS Dur : 100 ms QT Int : 388 ms P-R-T Axes : 079 089 077 degrees QTc Int : 390 ms Normal sinus rhythm Incomplete right bundle branch block T wave inversion No STEMI Borderline ECG Confirmed by DEDRA IVEY M.D. ([id number]), fashion editor BRAYDON VARGAS ([id number]) on 11/18/2017 3:51:42 PM Referred By: TRISTON Confirmed By:DEDRA IVEY M.D.
== END 2017-11-14 18:53 | disposition home or self-care (01) | DRG 313 ==
LOC: ERS 22:42 → 2SW 11-14 01:57 → OBSVTOIN 11-14 01:57
PROVIDERS: ADMIT Internal Medicine; ATTEND Internal Medicine
DX: R07.9 Chest pain, unspecified (principal); I25.10 Atherosclerotic heart disease of native coronary artery without angina pectoris; Z98.61 Coronary angioplasty status; I25.2 Old myocardial infarction; Z87.891 Personal history of nicotine dependence; E78.00 Pure hypercholesterolemia, unspecified; I10 Essential (primary) hypertension; G72.89 Other specified myopathies; E78.5 Hyperlipidemia, unspecified; Z91.19 Patient's noncompliance with other medical treatment and regimen; Z85.118 Personal history of other malignant neoplasm of bronchus and lung; Z85.05 Personal history of malignant neoplasm of liver; Z79.82 Long term (current) use of aspirin
CPT/HCPCS: 36415; 84484; 93005; 99406; A4216; J1650

== ENCOUNTER 2020-01-10 15:34 | Inpatient (IN) | payer SELFPAY ==
[~2020-01-10 15:34] MED LIST: Iopamidol 370 76% 100 ML VIAL ONE
[2020-01-10] MEDS ORDERED: Nitroglycerin 2% Ointment 1 INCH/1 GM Packet ONE ×2 (16:21)
[2020-01-10] MEDS ORDERED: Clopidogrel Bisulfate 300 MG TAB ONE (17:10)
[2020-01-10 17:48] LABS: Lactic Acid 1.8 mmol/L (0.5-2.2)
[2020-01-10] MEDS ORDERED: Acetaminophen 650 MG Suppository PR PRN (17:49)
[2020-01-10] MEDS ORDERED: Acetaminophen 325 MG TAB PO PRN (17:49)
[2020-01-10 17:53] LABS: ALT (SGPT) 31 U/L (8-55); AST (SGOT) 70 U/L (5-34); Acetaminophen Less than 6.0 mcg/mL (10.0-30.0); Albumin 4.3 g/dL (3.5-5.0); Alcohol Less than 10 mg/dL (Less than 10); Alkaline Phosphatase 93 U/L (40-110); Anion Gap 23 mmol/L (10-20); BUN (Urea Nitrogen) 11 mg/dL (8.9-20.6); Calc. Creatinine Clearance 0 mL/min (70-130); Calcium 8.8 mg/dL (7.8-10.44); Carbon Dioxide 18 mmol/L (22-29); Chloride 97 mmol/L (98-107); Estimated GFR-MDRD Greater than 90; Globulin 3.2 g/dL (2.4-3.5); Glucose 73 mg/dL (70-105); Potassium 4.4 mmol/L (3.5-5.1); Protein, Total 7.5 g/dL (6.0-8.3); Salicylate Less than 8.0 mg/dL (15.0-30.0); Sodium 134 mmol/L (136-145)
[2020-01-10] MEDS ORDERED: Lorazepam 2 MG/ML VIAL ONE (18:14)
[2020-01-10] MEDS ORDERED: Promethazine HCl 12.5 MG in Sodium Chloride 0.9% 50 ML IVPB SCH (18:15)
--- NOTE | 2020-01-10 18:28 | PDOC.HHP ---
Hospitalist HPI - History of Present Illness History of Present Illness: ADMISSION DATE: 01/10/2020 TIME OF ASSESSMENT: 1700 PRIMARY CARE PHYSICIAN: Dr. Bhatt CHIEF COMPLAINT: Chest pain HPI: Patient reports sudden onset central chest pain at approximately 1 PM today while he was at work. 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 Describes the pain as a constant pressure and that was a 7 out of 10 in severity when it first started and nonradiating. He went home to rest and as soon as he laid down the pain increased in severity to a 10 out of 10 prompting him to go to the emergency department. Patient is known to have history of multiple MIs in the past and has had a total of 7 stents placed. The first procedure was done in 2012 at which time he had 2 stents placed. He states 10 days later he had an additional stent placed. 7 days after that he had another stent placed. The last procedure was done in 2013 at which time he had 2 additonal stents placed. All procedures were done by Dr. Sparks but he denies any cardiac follow-up as an outpatient. Last catheter was done October 2017 at which time he was noted to have two-vessel disease. Prior stent in LAD showed no stenosis. RCA showed several lesions 90%. Had a stent to the distal RCA. EF at that time was 55 to 60%. ED COURSE: He was seen at [facility] where he was given nitroglycerin and 4 mg of morphine. This brought his pain down to a 6 out of 10 and states that nothing alleviated his pain completely. He takes 325 mg of aspirin daily therefore was not given any additional aspirin. He reports being compliant with his medications. He had an EKG done at initial presentation which showed sinus tachycardia with a heart rate of 118. He was noted to have upsloping ST segments in V3 through V6 and downsloping ST segments in lead I and aVL. Tall T waves seen V3 through V6 and T wave inversions in lead I and aVL. At [facility] he was treated with 4 mg of IV morphine, Lovenox 1 mg/kg, sublingual nitroglycerin, 5 mg of metoprolol IV and received 1 L of normal saline. Chest x-ray done showed borderline heart size that appeared slightly larger than prior film from October 2017. Laboratory studies done at [facility] showed a white count of 11.7, hemoglobin 15.2, hematocrit 47, platelets 296. Neutrophils 84.1%. Sodium 133 chloride 92 carbon DEXA 17 anion gap 28 BUN 14 creatinine 0.9243 glucose 81 AST 59 ALT 37 alk phos 92 CK-MB 9.3, initial troponin 0 0.746. BNP 39.3. Patient transferred here for further work-up and management. Repeat EKG showed normal sinus rhythm with a heart of 97. 2 of inversions or previously inverted are now improved and upright. No ST changes. According to Dr. Hines all EKGs have been reviewed by Dr. Baker does not advise giving him a loading dose of Plavix. Patient states immediately after taking the medication he had excessive vomiting. He was also started on Nitro-Bid 1 inch. Patient denies any improvement in his pain. Repeat troponin done here showed those further elevated at 2.690. Lactic acid done was 1.8. ROS: Patient reports having sweats today and states the vomiting started after receiving Plavix. Denies any hematemesis or coffee ground emesis. Denies any abdominal pain or bowel changes. States he has been unable to urinate until just a moment ago. He urinated a lot and denies any dysuria or hematuria. Reports having some tightness in his chest but denies any shortness of breath. Recently has had post nasal drip that has triggered a mild cough but it has not been productive for purulent sputum nor hemoptysis. Complains of palpitations when he initially presented to the ER today but that has settled. No recent fevers. All other review of systems negative. PAST MEDICAL HISTORY: 1. Multiple MIs 2. CAD 3. Dyslipidemia 4. History of lung cancer with metastasis to the liver treated with radiation 5. Hypertension PAST SURGICAL HISTORY: 1. Coronary stent placement x7 2. I&D 2 right fourth finger due to infection. SOCIAL HISTORY: Admits to smoking half a pack a day. Denies any heavy alcohol consumption however states the last time he drank was 6 days ago. He drank a pint of bourbon. Denies any drug use. FAMILY HISTORY: Positive for premature coronary artery disease ALLERGIES: Keflex CURRENT MEDICATIONS: 1. Aspirin 325 mg daily 2. Lisinopril 2.5 mg p.o. daily 3. Lipitor 40 mg p.o. at bedtime - Exam General - other findings: Appears restless, with tremors, disheveled and smells of urine Eye: PERRL, anicteric sclera ENT: normocephalic atraumatic, moist mucosa Neck: supple, no lymphadenopathy Heart: RRR, normal peripheral pulses Respiratory: CTAB, normal chest expansion, no tachypnea Gastrointestinal: soft, non-tender, non-distended, no guarding, no rigidity Extremities: no edema Skin: normal turgor, no lesions, no rashes Neurological: cranial nerve grossly intact, normal sensation to touch Musculoskeletal: normal tone, normal strength, no muscle wasting Psychiatric: normal affect, normal behavior, A&O x 3 Hospitalist Results - Labs Result Diagrams: 01/10/20 17:24 Lab results: Sodium 134 mmol/L (136-145) L 01/10/20 17:24 Potassium 4.4 mmol/L (3.5-5.1) 01/10/20 17:24 Chloride 97 mmol/L (98-107) L 01/10/20 17:24 Carbon Dioxide 18 mmol/L (22-29) L 01/10/20 17:24 BUN 11 mg/dL (8.9-20.6) 01/10/20 17:24 Creatinine 0.85 mg/dL (0.7-1.3) 01/10/20 17:24 Glucose 73 mg/dL (70-105) 01/10/20 17:24 Lactic Acid 1.8 mmol/L (0.5-2.2) 01/10/20 17:24 Calcium 8.8 mg/dL (7.8-10.44) 01/10/20 17:24 Total Bilirubin 1.0 mg/dL (0.2-1.2) 01/10/20 17:24 AST 70 U/L (5-34) H 01/10/20 17:24 ALT 31 U/L (8-55) 01/10/20 17:24 Alkaline Phosphatase 93 U/L (40-110) 01/10/20 17:24 Troponin I 2.690 ng/mL (< 0.028) H* 01/10/20 16:19 Serum Total Protein 7.5 g/dL (6.0-8.3) 01/10/20 17:24 Albumin 4.3 g/dL (3.5-5.0) 01/10/20 17:24 - Radiology Interpretation Chest x-ray Status: report reviewed by me Hospitalist H&P A/P - Problem (1) Chest pain Code(s): R07.9 - CHEST PAIN, UNSPECIFIED Status: Acute Qualifiers: Ischemic chest pain type: stable angina pectoris (2) Metabolic acidosis Code(s): E87.2 - ACIDOSIS Status: Acute (3) Vomiting Code(s): R11.10 - VOMITING, UNSPECIFIED Status: Acute (4) Tremor Code(s): R25.1 - TREMOR, UNSPECIFIED Status: Acute Assessment and Plan: (5) History of coronary artery stent placement Code(s): Z95.5 - PRESENCE OF CORONARY ANGIOPLASTY IMPLANT AND GRAFT Status: Chronic (6) HTN (hypertension) Code(s): I10 - ESSENTIAL (PRIMARY) HYPERTENSION Status: Chronic (7) HLD (hyperlipidemia) Code(s): E78.5 - HYPERLIPIDEMIA, UNSPECIFIED Status: Chronic (8) Tobacco use Code(s): Z72.0 - TOBACCO USE Status: Chronic - Plan Plan: Chest pain secondary to NSTEMI: Patient with extensive cardiac history, multiple stents in the past. S/p cath in 2018. Second trop 2.69, has been given Lovenox 1 mg/kg prior to transfer. EKGs reviewed by Dr. Baker who advised loading dose of Plavix 300 mg. Patient with vomiting immediately after it was given. States because he has not eaten all day. Started on Nitro-bid and pain persists at 7/10 with no significant improvement despite Morphine given. Will update Dr. Baker, might require cath tonight given persistent pain. Keep NPO Cardiac monitoring Repeat EKG to assess for dynamic changes. Consult placed to cardiology. Continue daily Aspirin, Plavix and statin. Further management as per Cardiology team. Echo ordered. ADDENDUM: Per Dr. Baker patient will be taken to cathode builder shortly. Metabolic acidosis: Secondary to ETOH vs. recent vomiting last ETOH intake per patient was 6 days ago (1 pint of whiskey) IV fluids given. Continue hydration. Check Mg+ Repeat BMP. Vomiting: Vomiting x 1 in the ED after given plavix Phenergan 12.5 mg IV x 1 ordered. Monitor electrolytes. Tremors: Patient denies history of alcohol abuse or withdrawal. As mentioned above, recent heavy alcohol consumption. Currently with generalized tremors and restless. Will be given Lorazepam. UDS and alcohol level ordered. ASE protocol monitoring ordered. Hypertension: Monitor BP and resume home medication once verified. Hyperlipidemia: Continue statin. Check lipid panel with AM labs. Tobacco use: Tobacco cessation. GI Prophylaxis: Famotidine 20 mg PO BID. DVT Prophylaxis: Already given full dose Lovenox for NSTEMI. CODE STATUS: FULL Surrogate decision maker is his Felisa Laughlin.
[2020-01-10] MEDS ORDERED: Midazolam HCl 2 mg/2 ml Vial ONE (19:15)
[2020-01-10] MEDS ORDERED: Fentanyl 100 MCG/2 ML VIAL ONE (19:16)
[2020-01-10] MEDS ORDERED: Metoprolol Tartrate 5 MG/5 ML VIAL ONE (19:30)
[2020-01-10] MEDS ORDERED: Aggrastat 12.5 MG/250 ML 250 ML ONE (19:31)
[2020-01-10] MEDS ORDERED: traMADol HCl 50 MG TAB PO PRN (19:59)
[2020-01-10] MEDS ORDERED: Milk Of Magnesia 30 ML UDCUP PO PRN (19:59)
[2020-01-10] MEDS ORDERED: Aggrastat 12.5 MG/250 ML 250 ML IVPB SCH (20:00)
[2020-01-10] MEDS ORDERED: Prasugrel 10 MG TAB PO SCH (20:00)
[2020-01-10] MEDS ORDERED: Acetaminophen/Codeine 30-300mg Tablet ONE (20:12)
[2020-01-10] MEDS: Acetaminophen/Codeine 30-300mg Tablet PO PRN (20:14)
[2020-01-10] MEDS ORDERED: Enoxaparin Sodium 80 MG/0.8 ML SYRINGE SC SCH (21:00)
[2020-01-10] MEDS: Metoprolol Tartrate 25 MG TAB PO SCH (22:03)
[2020-01-10] MEDS: Nitroglycerin 2% Ointment 1 INCH/1 GM Packet TOP SCH (22:03)
[2020-01-10] MEDS: Famotidine/PF 20 mg/2ml Vial SLOW IVP SCH (22:03)
[2020-01-10] MEDS: Sodium Chloride 0.9% 1,000 ML IV SCH (22:09)
[2020-01-10 22:36] VITALS: BMI 19.8
[2020-01-10 22:54] LABS: Anion Gap 20 mmol/L (10-20); BUN (Urea Nitrogen) 10 mg/dL (8.9-20.6); Calc. Creatinine Clearance 107 mL/min (70-130); Calcium 8.4 mg/dL (7.8-10.44); Carbon Dioxide 19 mmol/L (22-29); Chloride 97 mmol/L (98-107); Estimated GFR-MDRD Greater than 90; Glucose 68 mg/dL (70-105); Potassium 3.8 mmol/L (3.5-5.1); Sodium 132 mmol/L (136-145)
[2020-01-10 23:32] LABS: CKMB 55.8 ng/mL (0-6.6)
--- NOTE | 2020-01-10 23:57 | CON ---
DATE OF CONSULTATION: PRIMARY RN ADMISSIONS: Dr. Coarl Sparks. REASON FOR CONSULTATION: Non-ST elevation infarction with continued ongoing chest pain. HISTORY OF PRESENT ILLNESS: Mr. Duc Laughlin is a 44-year-old gentleman with a very long complicated history of coronary artery disease with multiple interventions. The patient's initial intervention appears to have been in 2013 when he presented with an acute anterior myocardial infarction. The patient had a stent placed, 3.0 x 23 Xience stent was positioned and deployed. The patient also had moderate disease in the right coronary artery. The patient re-presented with severe intractable angina on 04/27/2013, it was found that the stent had approximately 70% stenosis distal to the previous stent after a diagonal branch and there was thrombus in the stented area in the LAD. Dr. Moore placed a 3.5 x 20 mm stent and then a 3.0 x 12 mm stent more distally. There was a large diagonal branch which was wired and did require kissing balloons at the conclusion of that procedure. The patient did well with that procedure. The patient had recurrent chest pain, however, few weeks later, had to go back to the catheterization laboratory technician, found to have noncritical stenosis in the right coronary artery and the right coronary FFR was 0.85 and he was treated medically. The patient did well subsequently, but had recurrent intractable angina in October 2017, went back to the catheterization laboratory technician, found to have no obstructive stenosis in the LAD distribution, had a stent, a 3.0 x 32 mm stent placed in the right coronary artery. The patient states he was doing well up until today, had the sudden onset of substernal chest pain which was intense starting about 1 o'clock this afternoon and it has not led up he said. He presented to the emergency room at [place]. He received Lovenox and morphine. He said the pain is slightly decreased at times, but it has never gone away. It is now 7/10. The patient continues to have chest pain now. He tried to eat something, but vomited. The patient's initial troponin in [place] was 0.746, it is 2.69 here. MEDICATIONS: At home, he said he was taking aspirin, Plavix, blood pressure medicine as well and cholesterol medicine. SOCIAL HISTORY: Unfortunately continues to smoke. REVIEW OF SYSTEMS: CONSTITUTIONAL: No significant weight gain or loss. VISION: No changes. HEARING: No changes. PULMONARY: No cough or wheezing. GASTROINTESTINAL: No nausea, vomiting, or diarrhea. SKIN: No rashes. NEUROLOGIC: No unilateral weakness or numbness. PSYCHIATRIC: No unusual depression or anxiety. PHYSICAL EXAMINATION: GENERAL: This is a thin 44-year-old man, continuing to have chest pain. VITAL SIGNS: Blood pressure 130 systolic, pulse in the 70s. NECK: Neck veins normal. Carotid normal upstrokes. LUNGS: Clear. CARDIAC: Normal S1 and normal S2. ABDOMEN: Soft and nontender. EXTREMITIES: Warm and dry. No clubbing, cyanosis, or edema. He has good peripheral pulses. LABORATORY DATA: As outlined above. ASSESSMENT: 1. Previous stent implantation in the LAD with previous anterior myocardial infarction and subsequent stent thrombosis as outlined above in 2014. 2. Stenting of the right coronary artery in 2018. 3. Non-ST elevation infarction with intractable angina. RECOMMENDATIONS: Proceed to cardiac catheterization. Discussed the risk of stroke, heart attack, iodine allergy, the risk of loss of blood supply to leg or kidney, stent thrombosis, stent restenosis. The patient understands and wishes to proceed. Also increased risk of bleeding and the fact we will have to proceed with the procedure despite being anticoagulated with the last 3 to 4 hours. Job ID: [id number]
[2020-01-11] MEDS: Acetaminophen/Codeine 30-300mg Tablet PO PRN ×3 (02:22→20:08)
[2020-01-11 03:32] LABS: Bacteria/HPF None Seen HPF (None Seen); Bilirubin Negative (Negative); Blood, Urine Negative (Negative); Clarity Clear (Clear); Glucose, Urine (Dipstick) Normal (Negative); Ketone, Urine 60 mg/dL (Negative); Leukocyte Negative Leu/uL (Negative); Nitrite Negative (Negative); Protein, Urine (Dipstick) Negative (Neg-Trace); RBC/HPF 0-3 HPF (0-3); Specific Gravity, Urine 1.029 (1.002-1.036); Squamous Epithelial 0-3 HPF (0-3); Urobilinogen Normal mg/dL (Less than 2); WBC/HPF 0-3 HPF (0-3); pH, Urine 5.5 (5.0-9.0)
[2020-01-11 03:51] LABS: Amphetamine Not Detected (NotDetected); Barbiturates Screen Not Detected (NotDetected); Benzodiazepine Screen Not Detected (NotDetected); Cocaine Metabolite Screen Not Detected (NotDetected); Medtox Control Line Valid? VALID (VALID); Medtox Reader # READER 4; Methadone Not Detected (NotDetected); Methamphetamine Not Detected (NotDetected); Opiate Screen Detected (NotDetected); Oxycodone Screen Not Detected (NotDetected); Phencyclidine (PCP) Not Detected (NotDetected); THC/Cannabinoid Screen Not Detected (NotDetected); Tricyclic Screen Not Detected (NotDetected); Urine Culture Reflex No No
[2020-01-11 04:44] LABS: #Eosinphils 0.1 thou/uL (0.0-0.7); #Lymphocytes 1.9 thou/uL (1.20-3.40); #Monocytes 0.7 thou/uL (0.11-0.59); %Basophils 0.5 % (0.0-1.0); %Eosinophils 1.6 % (0.0-10.0); %Lymphocytes 21.3 % (21.0-51.0); %Monocytes 7.7 % (0.0-10.0); %Neutrophils 68.9 % (42.0-75.0); Hemoglobin 12.6 g/dL (14.0-18.0); Mean Corpuscular HGB CONC 34.4 g/dL (32.0-36.0); Mean Corpuscular Hemoglobin 32.6 pg (27.0-31.0); Mean Corpuscular Volume 94.8 fL (78.0-98.0); Mean Platelet Volume 7.2 fL (7.4-10.4); Platelet Count 236 thou/uL (130-400); RBC Distribution Width 11.8 % (11.5-14.5); Red Blood Cell (RBC) Count 3.86 mill/uL (4.70-6.10); White Blood Cell (WBC) Count 8.7 thou/uL (4.8-10.8)
[2020-01-11 05:04] LABS: ALT (SGPT) 25 U/L (8-55); AST (SGOT) 69 U/L (5-34); Albumin 3.5 g/dL (3.5-5.0); Alkaline Phosphatase 77 U/L (40-110); Anion Gap 13 mmol/L (10-20); BUN (Urea Nitrogen) 8 mg/dL (8.9-20.6); Bilirubin, Total 0.9 mg/dL (0.2-1.2); Calc. Creatinine Clearance 101 mL/min (70-130); Calcium 8.3 mg/dL (7.8-10.44); Carbon Dioxide 24 mmol/L (22-29); Chloride 99 mmol/L (98-107); Estimated GFR-MDRD Greater than 90; Globulin 2.6 g/dL (2.4-3.5); Glucose 136 mg/dL (70-105); Potassium 3.3 mmol/L (3.5-5.1); Protein, Total 6.1 g/dL (6.0-8.3); Sodium 133 mmol/L (136-145)
[2020-01-11 05:16] LABS: Critical Call Chem Troponin I RESULT DECREASING; Troponin I 7.812 ng/mL (< 0.028)
[2020-01-11] MEDS: Nitroglycerin 2% Ointment 1 INCH/1 GM Packet TOP SCH ×3 (05:55→21:30)
[2020-01-11] MEDS: Famotidine/PF 20 mg/2ml Vial SLOW IVP SCH ×2 (08:48→20:08)
[2020-01-11] MEDS: Aspirin Chewable 81 MG TAB PO SCH (08:48)
[2020-01-11] MEDS: Lisinopril 2.5 MG TAB PO SCH (08:48)
[2020-01-11] MEDS: Prasugrel 10 MG TAB PO SCH (08:51)
[2020-01-11] MEDS ORDERED: Clopidogrel Bisulfate 75 MG TAB PO SCH (09:00)
[2020-01-11] MEDS ORDERED: FLU VACC QS2020-21(6MOS UP)/PF 60 MCG/0.5 ML SYRINGE IM ONE (09:00)
[2020-01-11] MEDS ORDERED: Aspirin 325 mg Enteric Coated Tablet PO SCH (09:00)
[2020-01-11] MEDS: Sodium Chloride 0.9% 1,000 ML IV SCH (09:02)
--- NOTE | 2020-01-11 09:44 | CON ---
DATE OF CONSULTATION: 01/11/2020 HISTORY OF PRESENT ILLNESS: Duc Laughlin is a 44-year-old gentleman with known history of coronary artery disease. He sees a local physician over here, presented last time with chest pain. He is now in the ICU. He had a non ST-segment elevation infarct, ongoing chest pain. He had previous multiple interventions in the past. This morning, he said he is feeling better. He is half a pack a day smoker. PAST MEDICAL HISTORY: Otherwise pertinent for high cholesterol, coronary artery disease, hypertension, previous [place]. PAST SURGICAL HISTORY: Cardiac cath, finger surgery. 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 ALLERGIES: UNKNOWN. HOME MEDICINES: Zestril 2.5, Plavix 75, Coreg 3.125, aspirin 325. PHYSICAL EXAMINATION: GENERAL: Awake, alert, responsive, no distress. VITAL SIGNS: Temperature 98, pulse 73, blood pressure 113/73, sats 100% on room air. I's and O's have been good. CHEST: No wheezing. No crackles. CARDIAC: Normal S1, S2. No gallops. ABDOMEN: Soft. LABORATORY DATA: White count 8000, H and H 12 and 36, platelet count is normal. Sodium 133. Troponin is elevated. Drug screen negative. Chest x-ray, no acute infiltrates. ASSESSMENT AND PLAN: Acute coronary syndrome, coronary artery disease, ongoing tobacco abuse, hypertension, high cholesterol. Pulmonary vasquez, he is stable. Will follow at a distance. Please call if needed. He is advised to refrain from smoking. This is a consultation note, 70 minutes, 50% direct patient care. Job ID: [id number]
[2020-01-11] MEDS ORDERED: Aggrastat 12.5 MG/250 ML 250 ML IVPB SCH (10:19)
[2020-01-11] MEDS: Metoprolol Tartrate 25 MG TAB PO SCH ×2 (10:28→21:30)
[2020-01-11] MEDS ORDERED: Electrolyte Replacement Protoc 1 EACH EACH FS SCH (10:30)
--- NOTE | 2020-01-11 10:54 | PRG ---
DATE OF SERVICE: 01/11/2020 SUBJECTIVE: Mr. Laughlin is feeling better today. He still has some vague discomfort, but it is dramatically improved. OBJECTIVE: VITAL SIGNS: Blood pressure 128/87 and pulse 60 and it is regular. LUNGS: Clear. CARDIAC: Normal S1 and normal S2. ABDOMEN: Soft and nontender. LABORATORY DATA: Peak troponin level . ASSESSMENT: 1. Non-ST elevation infarction related to clot diagonal had been stented across. 2. Smoking. PLAN: 1. He is on Aggrastat. 2. We will start some Lovenox tonight. 3. Started on Effient, probably can continue the Aggrastat until tomorrow. Job ID: [id number]
[2020-01-11] MEDS ORDERED: Potassium Chloride 20 MEQ TAB PO SCH (11:45)
[2020-01-11] MEDS ORDERED: Electrolyte Replacement Protocol FS PRN (14:15)
[2020-01-11] MEDS ORDERED: Magnesium 2 GM/50 ML 2 GM in Premix Bag 1 BAG IVPB SCH (14:30)
--- NOTE | 2020-01-11 20:20 | PDOC.HOSPP ---
- Subjective Encounter Date: 01/11/20 Encounter Time: 14:00 Subjective: Was seen and examined in bed. He was admitted overnight to the ICU on account of chest pain. He status post cardiac catheterization He denies any chest pain or shortness of breath at the time of my evaluation. No significant events overnight. - Objective Vital Signs & Weight: Vital Signs (12 hours) Temp Pulse Pulse Pulse Resp BP BP 01/11/20 19:45 01/11/20 19:00 98.5 F 01/11/20 15:00 98.3 F 01/11/20 13:56 76 65 118/81 01/11/20 12:00 98.7 F 01/11/20 11:00 65 16 120/77 01/11/20 09:00 78 13 128/87 01/11/20 08:48 61 126/78 BP Pulse Ox Pulse Ox Pulse Ox 01/11/20 19:45 96 01/11/20 19:00 01/11/20 15:00 01/11/20 13:56 142/89 H 90 L 96 01/11/20 12:00 01/11/20 11:00 01/11/20 09:00 01/11/20 08:48 Weight Weight 134 lb 4.184 oz Most Recent Monitor Data Heart Rate from ECG 60 NIBP 122/91 NIBP BP-Mean 101 Respiration from ECG 20 SpO2 100 I&O: 01/10/20 01/11/20 01/12/20 06:59 06:59 06:59 Intake Total 1001 1244 Output Total 600 2605 Balance 401 -1361 Result Diagrams: 01/11/20 04:19 01/11/20 04:19 Hospitalist ROS - Medication Medications: Active Medications Generic Name Dose Route Start Last Admin Trade Name Freq PRN Reason Stop Dose Admin Acetaminophen 650 mg 01/10/20 17:49 01/11/20 10:28 Acetaminophen 325 Mg Tab PO 650 mg Q4H PRN Administration Headache/Fever/Mild Pain (1-3) Acetaminophen/Codeine Phosphate 1 tab 01/10/20 19:59 01/11/20 20:08 Acetaminophen/Codeine 30-300mg Tablet PO 1 tab Q4H PRN Administration Mild Pain (1-3) Aspirin 81 mg 01/11/20 09:00 01/11/20 08:48 Aspirin Chewable 81 Mg Tab PO 81 mg DAILY DANICA Administration Famotidine 20 mg 01/10/20 21:00 01/11/20 20:08 Famotidine/Pf 20 Mg/2ml Vial SLOW IVP 20 mg Q12HR DANICA Administration Sodium Chloride 1,000 mls @ 65 mls/hr 01/10/20 18:00 01/11/20 09:02 Normal Saline 0.9% IV 1,000 mls .[id number] DANICA Administration Tirofiban/Sodium Chloride 250 mls @ 0 mls/hr 01/11/20 10:19 01/11/20 12:08 Aggrastat 12.5 Mg/250 Ml IVPB 01/12/20 06:00 250 mls INF DANICA Administration Protocol As Directed Lisinopril 2.5 mg 01/11/20 09:00 01/11/20 08:48 Lisinopril 2.5 Mg Tab PO 2.5 mg DAILY DANICA Administration Metoprolol Tartrate 12.5 mg 01/10/20 21:00 01/11/20 10:28 Metoprolol Tartrate 25 Mg Tab PO 12.5 mg BID DANICA Administration Nitroglycerin 0.5 inch 01/10/20 22:00 01/11/20 13:53 Nitroglycerin 2% Ointment 1 Inch/1 Gm Packet TOP 0.5 inch Q8HR DANICA Administration Prasugrel 10 mg 01/11/20 09:00 01/11/20 08:51 Prasugrel 10 Mg Tab PO 10 mg DAILY DANICA Administration - Exam General Appearance: awake alert ENT: normocephalic atraumatic, no oropharyngeal lesions Heart: RRR, no murmur, no gallops, no rubs Respiratory: no wheezes, no rales, no ronchi, no tachypnea Gastrointestinal: soft, non-tender, non-distended, normal bowel sounds Extremities: no cyanosis, no clubbing, no edema Neurological: cranial nerve grossly intact, no focal deficits Psychiatric: normal affect, normal behavior, A&O x 3 Hosp A/P - Plan 4-year-old male patient with history of coronary artery disease presenting with chest pain he status post cardiac catheterization with no stent placed at this time. He is currently on tirofiban and monitored in the CCU. NSTEMI Currently on Aggrastat Also to start Lovenox tonight Transfer out of ICU in a.m. Continue aspirin and metoprolol Cardiology following. Metabolic acidosis Resolved Vomiting Resolved Hypertension BP control Continue home meds
[2020-01-11] MEDS ORDERED: Enoxaparin Sodium 30 MG/0.3 ML SYRINGE SC SCH (21:00)
[2020-01-11] MEDS ORDERED: Enoxaparin Sodium 40 MG/0.4 ML SYRINGE SC SCH (21:00)
[2020-01-12 04:14] LABS: Magnesium 2.1 mg/dL (1.6-2.6); Potassium 3.8 mmol/L (3.5-5.1)
[2020-01-12 04:21] LABS: Critical Call Chem Troponin I RESULT DECREASING
[2020-01-12] MEDS: Sodium Chloride 0.9% 1,000 ML IV SCH (04:34)
[2020-01-12] MEDS: Nitroglycerin 2% Ointment 1 INCH/1 GM Packet TOP SCH (05:11)
[2020-01-12] MEDS: Metoprolol Tartrate 25 MG TAB PO SCH (08:30)
[2020-01-12] MEDS: Aspirin Chewable 81 MG TAB PO SCH (08:30)
[2020-01-12] MEDS: Lisinopril 2.5 MG TAB PO SCH (08:30)
[2020-01-12] MEDS: Prasugrel 10 MG TAB PO SCH (08:30)
[2020-01-12] MEDS: Famotidine/PF 20 mg/2ml Vial SLOW IVP SCH (08:30)
[2020-01-12 08:31] VITALS: BP 120/77
[2020-01-12] MEDS ORDERED: Enoxaparin Sodium 30 MG/0.3 ML SYRINGE SC SCH ×2 (09:00→15:30)
--- NOTE | 2020-01-12 10:05 | PRG ---
DATE OF SERVICE: 01/12/2020 SUBJECTIVE: Duc Laughlin is a 44-year-old gentleman. No chest pain. No shortness of breath. OBJECTIVE: VITAL SIGNS: Pulse 65, blood pressure 120/77, respiratory rate 18, and sats 100%. CHEST: No wheezing. No crackles. CARDIAC: Normal S1, S2. No gallops. IMPRESSION: Chest pain, status post cardiac cath, and coronary artery disease. PLAN: Pulmonary vasquez, disposition as per Cardiology. Pulmonary will follow at a distance. Job ID: [id number]
--- NOTE | 2020-01-12 10:52 | PRG ---
DATE OF SERVICE: SUBJECTIVE: Mr. Laughlin feels well. No chest pain or pressure. No complaints. OBJECTIVE: VITAL SIGNS: Blood pressure 111/72, pulse is in the 60s, it is sinus. LUNGS: Clear. CARDIAC: Normal S1, normal S2. ABDOMEN: Soft, nontender right groin, no tenderness. EXTREMITIES: No edema. ASSESSMENT: 1. Status post non-ST elevation infarction related to thrombus in the side branch of a diagonal branch, which was stented across. 2. History of smoking. PLAN: 1. Transferred to telemetry. 2. He is on aspirin, Effient, and low-dose Lovenox. 3. Also needs to be on a statin. Job ID: [id number]
[2020-01-12 14:38] VITALS: TEMP 98.4
[2020-01-12] MEDS ORDERED: Carvedilol 3.125 MG TAB PO SCH (17:00)
--- NOTE | 2020-01-12 19:49 | PDOC.HOSPP ---
- Subjective Encounter Date: 01/12/20 Subjective: Patient was seen and examined in bed. He had a good night and denied any chest pain or shortness of breath - Objective Vital Signs & Weight: Vital Signs (12 hours) Temp Pulse BP 01/12/20 12:00 98.4 F 01/12/20 08:30 65 120/77 01/12/20 08:00 98.2 F Weight Weight 134 lb 4.184 oz Most Recent Monitor Data Heart Rate from ECG 55 NIBP 125/83 NIBP BP-Mean 97 Respiration from ECG 16 SpO2 100 I&O: 01/11/20 01/12/20 01/13/20 06:59 06:59 06:59 Intake Total 1001 2055 993 Output Total 600 4005 1100 Balance 401 -1950 -107 Result Diagrams: 01/11/20 04:19 01/12/20 03:21 - Exam General Appearance: awake alert Heart: RRR, no murmur, no gallops, no rubs Respiratory: no wheezes, no rales, no ronchi, no tachypnea Gastrointestinal: soft, non-distended Extremities: no cyanosis, no clubbing, no edema Neurological: cranial nerve grossly intact, no focal deficits Psychiatric: normal affect, A&O x 3 Hosp A/P - Plan 4-year-old male patient with history of coronary artery disease presenting with chest pain he status post cardiac catheterization with no stent placed at this time. He is currently in the ICU and he due for transfer out today. NSTEMI Completed Aggrastat overnight Will be transferred out of ICU. Cardiology following. Metabolic acidosis Resolved Vomiting Resolved Hypertension BP control Continue home meds Addendum: I was informed by patient's nurse that the patient has left AMA due to some personal demands
[2020-01-12] MEDS ORDERED: Rosuvastatin 20 MG TAB PO SCH (21:00)
--- NOTE | 2020-01-13 10:30 | DIS ---
DATE OF ADMISSION: 01/10/2020 DATE OF DISCHARGE: 01/12/2020 The patient is leaving against medical advice. FINAL DIAGNOSES: 1. [id number] myocardial infarction. 2. Tobacco dependence. 3. Noncompliance. PROCEDURES: Left heart catheterization. PRIMARY RN CASE MANAGER: Dr. Chris Sparks. HOSPITAL COURSE: Mr. Laughlin presented with intractable chest pain on 01/10/2020. The patient's pain continued and was very intense. EKG showed some peaked T-waves in the anterior leads. In view of the continued pain, he went to the catheterization lab. He has history of stent implantation by Dr. Sparks and Dr. Moore in the past. In the record label internship, we found the following: Left main, normal. LAD, previously placed proximal stent was patent with good flow. There was mild, what appeared to be, nonobstructive stenosis in the LAD distal to the diagonal branch. The diagonal branch had what looked clearly to be thrombus in the origin. This area had been "stented across" in the side branch. The circumflex had no obstructive stenosis. Right coronary artery, previously placed stent was widely patent. There was some nonobstructive plaque more proximally. The patient was given Aggrastat and subsequently Lovenox. The patient's pain resolved. The patient's peak troponin was 7.8. The patient did have an episode of nonsustained ventricular tachycardia, asymptomatic today. The patient was placed on Effient instead of Plavix and advised to stay in the hospital for a few days to make sure his pain was not going to recur, but then I called and informed that the patient is leaving against medical advice. I came in and try to persuade him to stay for further anticoagulation, but he declines. The patient understands the situation, he may have a heart attack, but he says "I will take that risk." The medication will be the same as admission but the only difference, we will take him off the Plavix, put him on Effient, which is a stronger anti-platelet drug. Strongly advised him not to smoke. We resumed the lisinopril and carvedilol as well as aspirin 81 mg a day. His other medicines, he is on rosuvastatin, we actually got him on metoprolol 25 mg twice a day here as ejection fraction was over 50%. Job ID: [id number]
== END 2020-01-12 15:45 | disposition left against medical advice (07) | DRG 281 ==
LOC: ERS 15:34 → ERHOLD 17:05 → SURG A 19:09 → CCU 21:17
PROVIDERS: ADMIT Internal Medicine; ATTEND Internal Medicine
PROC: 4A023N7 Measurement of Cardiac Sampling and Pressure, Left Heart, Percutaneous Approach (ICD-10-PCS; principal; 2020-01-10)
PROC: B2111ZZ Fluoroscopy of Multiple Coronary Arteries using Low Osmolar Contrast (ICD-10-PCS; 2020-01-10)
PROC: B2151ZZ Fluoroscopy of Left Heart using Low Osmolar Contrast (ICD-10-PCS; 2020-01-10)
PROC: 3E033PZ Introduction of Platelet Inhibitor into Peripheral Vein, Percutaneous Approach (ICD-10-PCS; 2020-01-10)
DX: I97.190 Other postprocedural cardiac functional disturbances following cardiac surgery (principal); I21.4 Non-ST elevation (NSTEMI) myocardial infarction; I47.2 Ventricular tachycardia; I21.A9 Other myocardial infarction type; E87.2 Acidosis; T82.867A Thrombosis due to cardiac prosthetic devices, implants and grafts, initial encounter; F17.200 Nicotine dependence, unspecified, uncomplicated; I25.10 Atherosclerotic heart disease of native coronary artery without angina pectoris; E78.5 Hyperlipidemia, unspecified; I10 Essential (primary) hypertension; E78.00 Pure hypercholesterolemia, unspecified; Z91.19 Patient's noncompliance with other medical treatment and regimen; Z28.21 Immunization not carried out because of patient refusal; Z95.5 Presence of coronary angioplasty implant and graft; I25.2 Old myocardial infarction; Z85.118 Personal history of other malignant neoplasm of bronchus and lung; Z85.05 Personal history of malignant neoplasm of liver; Z92.3 Personal history of irradiation; Z88.8 Allergy status to other drugs, medicaments and biological substances; Z79.899 Other long term (current) drug therapy; Z79.82 Long term (current) use of aspirin
CPT/HCPCS: 36415; 76942; 80053; 80306; 80307; 81001; 82010; 82553; 83605; 83735; 84132; 84443; 84484; 85025; 85347; 92977; 93005; 93306; 93458; 93798; 94760; 99152; 99153; J1644; J1650; J2060; J2250; J3010; J3246; J3475; Q9967; S0028

== ENCOUNTER 2021-10-10 15:10 | Observation (INO) | payer SELFPAY ==
[2021-10-10 16:58] VITALS: BMI 24.0
[2021-10-10] MEDS ORDERED: Senokot S 8.6-50 MG TAB PO PRN (18:39)
[2021-10-10] MEDS ORDERED: Acetaminophen 325 MG TAB PO PRN (18:39)
[2021-10-10] MEDS ORDERED: Ondansetron PF 4 MG/2 ML Vial IVP PRN (18:39)
[2021-10-10] MEDS ORDERED: Bisacodyl 5 MG TAB PO PRN (18:39)
[2021-10-10] MEDS ORDERED: Ondansetron ODT 4 MG TAB PO PRN (18:39)
[2021-10-10 19:26] LABS: Hemoglobin A1c 5.5 % (4.0-6.0)
[2021-10-10 20:36] LABS: Troponin I Less than 0.010 ng/mL (< 0.028)
[2021-10-10] MEDS: Nitroglycerin 2% Ointment 1 INCH/1 GM Packet TOP SCH (21:50)
[2021-10-10 22:50] LABS: Troponin I Less than 0.010 ng/mL (< 0.028)
[2021-10-11 04:46] LABS: #Basophils 0.1 thou/uL (0.0-0.2); #Eosinphils 0.3 thou/uL (0.0-0.7); #Lymphocytes 3.5 thou/uL (1.20-3.40); #Monocytes 0.8 thou/uL (0.11-0.59); %Basophils 0.8 % (0.0-1.0); %Eosinophils 3.4 % (0.0-10.0); %Lymphocytes 40.6 % (21.0-51.0); %Monocytes 9.4 % (0.0-10.0); %Neutrophils 45.8 % (42.0-75.0); Hemoglobin 13.4 g/dL (14.0-18.0); Mean Corpuscular HGB CONC 33.8 g/dL (32.0-36.0); Mean Corpuscular Hemoglobin 31.1 pg (27.0-31.0); Platelet Count 219 thou/uL (130-400); RBC Distribution Width 11.6 % (11.5-14.5); Red Blood Cell (RBC) Count 4.32 mill/uL (4.70-6.10); White Blood Cell (WBC) Count 8.6 thou/uL (4.8-10.8)
[2021-10-11 05:06] LABS: ALT (SGPT) 12 U/L (8-55); AST (SGOT) 16 U/L (5-34); Albumin 3.5 g/dL (3.5-5.0); Alkaline Phosphatase 78 U/L (40-110); Anion Gap 13 mmol/L (10-20); BUN (Urea Nitrogen) 10 mg/dL (8.9-20.6); Bilirubin, Total 0.4 mg/dL (0.2-1.2); Calc. Creatinine Clearance 132 mL/min (70-130); Calcium 8.6 mg/dL (7.8-10.44); Carbon Dioxide 22 mmol/L (22-29); Cardiac Risk 5.1 (Less than 4.5); Chloride 107 mmol/L (98-107); Cholesterol 214 mg/dl (< 200 Desired); Estimated GFR 114; Globulin 2.7 g/dL (2.4-3.5); Glucose 102 mg/dL (70-105); HDL Cholesterol 42 mg/dL (>60 Neg Risk); LDL Cholesterol, Calculated 134 mg/dL; Potassium 3.9 mmol/L (3.5-5.1); Protein, Total 6.2 g/dL (6.0-8.3); Sodium 138 mmol/L (136-145); Triglycerides 188 mg/dL (Less than 150)
[2021-10-11] MEDS: Nitroglycerin 2% Ointment 1 INCH/1 GM Packet TOP SCH (05:11)
[2021-10-11] MEDS ORDERED: Carvedilol 3.125 MG TAB PO SCH (08:00)
[2021-10-11 08:39] LABS: Amphetamine Not Detected (NotDetected); Barbiturates Screen Not Detected (NotDetected); Benzodiazepine Screen Not Detected (NotDetected); Cocaine Metabolite Screen Not Detected (NotDetected); Methadone Not Detected (NotDetected); Methamphetamine Not Detected (NotDetected); Opiate Screen Detected (NotDetected); Oxycodone Screen Not Detected (NotDetected); Phencyclidine (PCP) Not Detected (NotDetected); THC/Cannabinoid Screen Not Detected (NotDetected); Tricyclic Screen Not Detected (NotDetected)
[2021-10-11] MEDS ORDERED: ADENOSINE 60 MG/20 ML VIAL ONE (08:49)
[2021-10-11] MEDS ORDERED: Aspirin 81 mg Enteric Coated Tablet PO SCH (09:00)
[2021-10-11] MEDS ORDERED: Lisinopril 2.5 MG TAB PO SCH (09:00)
[2021-10-11] MEDS ORDERED: Enoxaparin Sodium 40 MG/0.4 ML SYRINGE SC SCH (09:00)
[2021-10-11] MEDS ORDERED: Prasugrel 10 MG TAB PO SCH (09:00)
[2021-10-11 13:14] VITALS: BP 146/86; TEMP 97.4
[2021-10-11] MEDS ORDERED: Atorvastatin Calcium 40 MG TAB PO SCH (21:00)
[2021-10-11] MEDS ORDERED: Rosuvastatin 20 MG TAB PO SCH (21:00)
[2021-10-12] MEDS ORDERED: Aspirin 81 mg Enteric Coated Tablet PO SCH (09:00)
== END 2021-10-11 13:46 | disposition home or self-care (01) ==
LOC: 2SW 16:33
PROVIDERS: ADMIT Internal Medicine; ATTEND Internal Medicine
DX: R07.9 Chest pain, unspecified (principal); I25.10 Atherosclerotic heart disease of native coronary artery without angina pectoris; I25.2 Old myocardial infarction; I10 Essential (primary) hypertension; E78.5 Hyperlipidemia, unspecified; F17.210 Nicotine dependence, cigarettes, uncomplicated; I45.10 Unspecified right bundle-branch block; Z85.05 Personal history of malignant neoplasm of liver; Z85.118 Personal history of other malignant neoplasm of bronchus and lung; Z79.899 Other long term (current) drug therapy; Z88.1 Allergy status to other antibiotic agents; Z95.5 Presence of coronary angioplasty implant and graft; Z20.822 Contact with and (suspected) exposure to COVID-19
CPT/HCPCS: 36415; 78452; 80053; 80061; 80306; 83036; 84443; 85025; 93017; 94760; 96372; A9500; G0378; J0153; J1650; U0003; U0005